=== PATIENT | male | born 1975 | race Caucasian/White ===

== ENCOUNTER 2016-07-16 14:34 | Emergency (ER) | payer OTHER ==
[~2016-07-16] VITALS: Wt 77.6 kg
[~2016-07-16 14:34] MED LIST: ATIVAN0.5 MG PO; AUGMENTIN 875 M1 TAB PO; BENTYL10 MG PO; CEFADROXIL500 M1 PO; CEPHALEXIN500 M1 PO; CEPHALEXIN500 MG PO; CLARITIN10 MG PO; CLEOCIN150 MG PO; COMPAZINE10 MG PO; DAYPRO600 M1 PO; HYDROCODONE BIT1 T11 PO; MEDROL DOSEPAK4 MG PO; MOTRIN800 MG PO; NAPROSYN500 MG PO; NKHM; NKHM PO; PCN-200200 MG PO; PENICILLIN250 MG PO; PERCOCET 325 MG1 TA2 PO; PERCOCET 325 MG1 TA6 PO; PERCOCET 325 MG1 TA7 PO; VICODIN 500 MG-1 TAB PO
[2016-07-16 15:21] LABS: BASO # 0.1 10*3/uL (0.0-0.1); BASO % 0.7 % (0.0-1.0); EOS # 0.4 10*3/uL (0.0-0.4); HEMATOCRIT 48.4 % (42.0-52.0); HEMOGLOBIN 15.9 g/dl (14.0-18.0); LYMPH # 2.1 10*3/uL (1.3-4.4); LYMPH % 24.6 % (27.0-41.0); MEAN CELL VOLUME 92.9 fl (80.0-94.0); MEAN CORPUSCULAR HGB 30.5 pg (27.0-31.0); MEAN CORPUSCULAR HGB CONC 32.9 g/dl (33.0-37.0); MONO # 0.4 10*3/uL (0.1-1.0); MONO % 5.2 % (3.0-9.0); NEUT # 5.4 10*3/uL (2.3-7.9); NEUT % 64.3 % (47.0-73.0); PLATELET COUNT AUTOMATED 254 10*3/uL (130-400); RED BLOOD COUNT 5.21 10*6/uL (4.50-5.90); WHITE BLOOD COUNT 8.4 10*3/uL (4.8-10.8)
[2016-07-16 15:35] LABS: ALKALINE PHOSPHATASE 80 U/L (45-117); BILIRUBIN, TOTAL 0.3 mg/dl (0.2-1.0); BUN 12 mg/dl (7-24); CARBON DIOXIDE 27 mmol/L (21-32); CHLORIDE 106 mmol/L (98-107); EST GLOM FILT AFRICAN AMERICAN > 60 ml/min; GLUCOSE 90 mg/dL (65-99); POTASSIUM 4.4 mmol/L (3.5-5.1); SGOT/AST 14 IU/L (3-35); SGPT/ALT 22 U/L (12-78); SODIUM 141 mmol/L (136-145); TOTAL PROTEIN 7.3 gm/dL (6.4-8.2)
[2016-07-16 15:54] LABS: BILIRUBIN NEGATIVE (NEGATIVE); BLOOD NEGATIVE (NEGATIVE); CLARITY CLEAR (CLEAR); COLOR YELLOW (YELLOW); GLUCOSE NEGATIVE (NEGATIVE); KETONE NEGATIVE (NEGATIVE); LEUKO ESTERASE NEGATIVE (NEGATIVE); NITRITE NEGATIVE (NEGATIVE); PH 5.5 (5.0-9.0); PROTEIN NEGATIVE (NEGATIVE); SPECIFIC GRAVITY <= 1.005 (1.005-1.030); UROBILINOGEN 0.2 E.U./dl (0.2-1.0)
[2016-07-16 16:28] LABS: URINE REFLEX COMMENT NO (NO); WBC 0-2 wbc/hpf (0-5)
[2016-07-16 17:00] VITALS: BP 110/68
[2016-07-16] MEDS ORDERED: BENTYL10 MG PO (17:09)
== END 2016-07-16 17:22 | disposition home or self-care (01) ==
LOC: ED 14:34
PROVIDERS: Physician Assistant
DX: G89.29 Other chronic pain (principal); R10.32 Left lower quadrant pain; F17.200 Nicotine dependence, unspecified, uncomplicated; Z90.49 Acquired absence of other specified parts of digestive tract; Z87.442 Personal history of urinary calculi

== ENCOUNTER → 2017-05-06 | Day surgery (SDC) | payer OTHER ==
[~2017-05-06] VITALS: Ht 170.1 cm; Wt 72.6 kg
[~2017-05-06] MED LIST changes: +ADVIL200 MG PO; +OMEPRAZOLE40 MG PO
--- NOTE | ~2017-05-06 | O ---
[place], [place] OPERATIVE NOTE NAME: MANJEET TAN UNIT #: [id number] ROOM: DOCTOR: RODRÍGUEZ GILMORE MD BIRTHDATE: [birth year] DOS: 05/06/2017 GASTROENDOSCOPIC REPORT INDICATIONS: A 41-year-old patient has presented with chief complaint of epigastric distress, dyspepsia, avid intake of Advil, change in bowel habit. Two bottles of Pepto-Bismol daily and ibuprofen greater than 6 tablets per day. ALLERGIES: No medication. FAMILY HISTORY: Colonic carcinoma in uncle. PAST SURGICAL HISTORY: Appendectomy, tobacco. PROCEDURE: Today's procedure part of investigation is panendoscopy and colonoscopy. REPORT: After putting the patient in left lateral position and application of lubricant to the scope, the scope was introduced. Thereafter, under direct visualization, advanced through the length of esophagus without difficulty. Esophagus, cervical, thoracic distal within normal limits. Gastric pouch was entered. Diffuse gastritis was noticed. This is secondary to Advil intake and consumption of Pepto-Bismol large volume. Therefore, this is going to be addressed with omeprazole 40 mg daily. Duodenum was entered. Evidence of duodenitis as well was noticed. Gastritis seen. Antrum was biopsied. GI reflexion of the scope reveals cardia to be benign. Air was suctioned out. The patient was extubated, tolerated procedure well. IMPRESSION: Gastritis, duodenitis, most likely secondary to avid intake of Advil and Pepto-Bismol. PLAN AND DISCUSSION: Omeprazole 40 mg daily as advised to abstain from intake of Pepto-Bismol and Advil and Tylenol substitution would do and clinical reassessment. The patient has presented with diarrhea. The patient has been taking two bottles of Pepto-Bismol. This could has been the culprit. He is taking that because of the dyspepsia. Self treatment [place], [place] OPERATIVE NOTE NAME: MANJEET TAN UNIT #: [id number] ROOM: DOCTOR: RODRÍGUEZ GILMORE MD BIRTHDATE: [birth year] RODRÍGUEZ GILMORE MD CM:OPRECORD:OPERATIVE NOTE [id number] RODRÍGUEZ GILMORE MD 05/06/17 1233 interface
--- NOTE | ~2017-05-06 | O ---
[place], [place] OPERATIVE NOTE NAME: MANJEET TAN UNIT #: [id number] ROOM: DOCTOR: MANDO GIRALDO,RODRÍGUEZ BIRTHDATE: [birth year] DOS: 05/06/2017 The patient has presented with diarrhea. The patient has been taking two bottles of Pepto-Bismol. This could has been the culprit. He is taking that because of the dyspepsia. Self-treatment. PROCEDURE: Today's procedure part of investigation is colonoscopy plus piecemeal polypectomy. PREMEDICATION: Versed and Diprivan. SCOPE: Olympus folding colonoscope 10L video. REPORT: After putting the patient in left lateral position and application of lubricant to the scope, the scope was introduced. Thereafter, under direct visualization, advanced through the length of colon without difficulty. Some retained stool throughout encountered. Base of cecum; however explored. Appendiceal orifice identified, ileocecal valve was defined. Air was suctioned out. The patient was extubated after removal of a sessile polypoid lesion from sigmoid colon with piecemeal polypectomy. IMPRESSION: Sessile colonic polyp, sigmoid colon, otherwise normal colonoscopic examination. PLAN AND DISCUSSION: The patient advised to abstain intake of Pepto-Bismol 2 bottles per day and to abstain from ibuprofen intake 6 tablets daily, substituting with Tylenol as well and was advised to abstain from carbonated sodas and nicotine products. Follow up routinely with you in office, p.r.n. visit with us in [facility]. Thank you very much indeed. RODRÍGUEZ GILMORE MD CM:OPRECORD:OPERATIVE NOTE [id number] RODRÍGUEZ GILMORE MD 05/06/17 1236 interface
[2017-05-06 09:49] VITALS: BP 112/67
[2017-05-06 11:48] VITALS: BP 102/60
[2017-05-06 11:56] VITALS: BP 108/63
[2017-05-06 12:13] VITALS: BP 116/78
[2017-05-06 12:20] VITALS: BP 105/67
== END ==
LOC: SDC 05-04 09:30
DX: D12.5 Benign neoplasm of sigmoid colon (principal); K29.90 Gastroduodenitis, unspecified, without bleeding; F41.9 Anxiety disorder, unspecified; M54.5 Low back pain; G89.29 Other chronic pain; Z90.49 Acquired absence of other specified parts of digestive tract; Z80.9 Family history of malignant neoplasm, unspecified; Z82.49 Family history of ischemic heart disease and other diseases of the circulatory system; F17.210 Nicotine dependence, cigarettes, uncomplicated

== ENCOUNTER 2017-08-05 20:51 | Emergency (ER) | payer OTHER ==
[~2017-08-05] VITALS: Ht 172.7 cm; Wt 76.2 kg
[2017-08-05 20:52] VITALS: BP 137/88
[2017-08-05 22:19] LABS: BASO # 0.1 10*3/uL (0.0-0.1); BASO % 0.6 % (0.0-1.0); EOS # 0.6 10*3/uL (0.0-0.4); EOS % 6.8 % (1.0-4.0); HEMATOCRIT 46.2 % (42.0-52.0); HEMOGLOBIN 14.8 g/dl (14.0-18.0); LYMPH # 2.9 10*3/uL (1.3-4.4); LYMPH % 31.9 % (27.0-41.0); MEAN CELL VOLUME 95.7 fl (80.0-94.0); MEAN CORPUSCULAR HGB 30.6 pg (27.0-31.0); MEAN PLATELET VOLUME 8.8 fl (9.6-12.3); MONO # 0.7 10*3/uL (0.1-1.0); MONO % 7.3 % (3.0-9.0); NEUT # 4.8 10*3/uL (2.3-7.9); NEUT % 53.2 % (47.0-73.0); PLATELET COUNT AUTOMATED 265 10*3/uL (130-400); RED BLOOD COUNT 4.83 10*6/uL (4.50-5.90); RED CELL DISTRI WIDTH 12.2 % (0-14.5); WHITE BLOOD COUNT 8.9 10*3/uL (4.8-10.8)
[2017-08-05 22:38] LABS: ALBUMIN 3.9 gm/dl (3.1-4.5); ALKALINE PHOSPHATASE 70 U/L (45-117); BUN 11 mg/dl (7-24); CHLORIDE 102 mmol/L (98-107); CREATININE 0.97 mg/dL (0.70-1.30); POTASSIUM 4.5 mmol/L (3.5-5.1); SGOT/AST 15 IU/L (3-35); SGPT/ALT 24 U/L (12-78); SODIUM 139 mmol/L (136-145); TOTAL PROTEIN 7.1 gm/dL (6.4-8.2); URIC ACID 5.3 mg/dL (3.5-7.2)
[2017-08-05 23:35] LABS: BODY FLUID WBC 307 /uL
[2017-08-05] MEDS ORDERED: PERCOCET 5-3251 EACH PO (23:58)
[2017-08-06] MEDS ORDERED: Motrin,Rufen800 MG PO (00:11)
[2017-08-06 00:53] LABS: BF LYMPHOCYTES 20 %; BF MONOCYTES 75 %; BF NEUTROPHILS 5 %
== END 2017-08-06 00:59 | disposition home or self-care (01) ==
LOC: ED 20:51
PROVIDERS: Physician Assistant
DX: M25.462 Effusion, left knee (principal); F17.200 Nicotine dependence, unspecified, uncomplicated; Z90.49 Acquired absence of other specified parts of digestive tract; Z79.899 Other long term (current) drug therapy

== ENCOUNTER → 2017-09-23 | Outpatient (CLI) | payer OTHER ==
[~2017-09-23] MED LIST changes: +Motrin,Rufen800 MG PO; +PERCOCET 5-3251 EACH PO
== END | disposition home or self-care (01) ==
LOC: MRI 09-03 09:00
DX: Z01.818 Encounter for other preprocedural examination (principal); S83.242A Other tear of medial meniscus, current injury, left knee, initial encounter; X58.XXXA Exposure to other specified factors, initial encounter; Y93.89 Activity, other specified; Y92.89 Other specified places as the place of occurrence of the external cause; Y99.8 Other external cause status

== ENCOUNTER 2017-10-03 16:52 | Emergency (ER) | payer OTHER ==
[~2017-10-03] VITALS: Ht 172.7 cm; Wt 74.8 kg
[2017-10-03 16:53] VITALS: BP 131/67
== END 2017-10-03 18:55 | disposition home or self-care (01) ==
LOC: ED 16:52
DX: M25.562 Pain in left knee (principal); Z79.899 Other long term (current) drug therapy; Z90.49 Acquired absence of other specified parts of digestive tract

== ENCOUNTER → 2017-10-08 | Outpatient (CLI) | payer OTHER ==
[~2017-10-08] MED LIST changes: +NORCO 5-325 TA1 EACH PO; +ZOFRAN4 MG PO
== END | disposition home or self-care (01) ==
LOC: ORTHO 01:07
DX: M25.462 Effusion, left knee (principal); S83.207A Unspecified tear of unspecified meniscus, current injury, left knee, initial encounter; X58.XXXA Exposure to other specified factors, initial encounter; Y93.89 Activity, other specified; Y92.89 Other specified places as the place of occurrence of the external cause; Y99.8 Other external cause status

== ENCOUNTER 2018-06-17 21:40 | Emergency (ER) | payer OTHER ==
[~2018-06-17] VITALS: Ht 170.1 cm; Wt 72.6 kg
[~2018-06-17 21:40] MED LIST changes: +VIBRAMYCIN100 MG PO
[2018-06-17 21:42] VITALS: BP 129/74
[2018-06-17 22:18] LABS: BASO # 0.1 10*3/uL (0.0-0.1); BASO % 0.8 % (0.0-1.0); EOS # 0.6 10*3/uL (0.0-0.4); EOS % 7.6 % (1.0-4.0); HEMATOCRIT 46.4 % (42.0-52.0); LYMPH # 2.4 10*3/uL (1.3-4.4); LYMPH % 29.2 % (27.0-41.0); MEAN CELL VOLUME 93.9 fl (80.0-94.0); MEAN CORPUSCULAR HGB 30.4 pg (27.0-31.0); MEAN CORPUSCULAR HGB CONC 32.3 g/dl (33.0-37.0); MEAN PLATELET VOLUME 8.8 fl (9.6-12.3); MONO # 0.6 10*3/uL (0.1-1.0); MONO % 6.8 % (3.0-9.0); NEUT # 4.6 10*3/uL (2.3-7.9); NEUT % 55.5 % (47.0-73.0); PLATELET COUNT AUTOMATED 271 10*3/uL (130-400); RED BLOOD COUNT 4.94 10*6/uL (4.50-5.90); RED CELL DISTRI WIDTH 11.9 % (0-14.5); WHITE BLOOD COUNT 8.3 10*3/uL (4.8-10.8)
[2018-06-17 22:41] LABS: ALBUMIN 3.7 gm/dl (3.1-4.5); ALKALINE PHOSPHATASE 106 U/L (45-117); BUN 16 mg/dl (7-24); CHLORIDE 107 mmol/L (98-107); CREATININE 0.99 mg/dL (0.70-1.30); POTASSIUM 3.7 mmol/L (3.5-5.1); SGOT/AST 7 IU/L (3-35); SGPT/ALT 17 U/L (12-78); SODIUM 141 mmol/L (136-145); TOTAL PROTEIN 7.2 gm/dL (6.4-8.2)
== END 2018-06-18 00:27 | disposition home or self-care (01) ==
LOC: ED 21:40
PROVIDERS: Emergency Medicine
DX: L73.8 Other specified follicular disorders (principal); J98.8 Other specified respiratory disorders; B33.8 Other specified viral diseases; F17.200 Nicotine dependence, unspecified, uncomplicated; G89.29 Other chronic pain; R10.9 Unspecified abdominal pain; Z79.899 Other long term (current) drug therapy; Z90.49 Acquired absence of other specified parts of digestive tract

== ENCOUNTER 2018-12-06 18:58 | Emergency (ER) | payer OTHER ==
[~2018-12-06] VITALS: Ht 172.7 cm; Wt 70.3 kg
[2018-12-06 18:59] VITALS: BP 126/79
[2018-12-06] MEDS ORDERED: CEPHALEXIN500 M1 PO (20:19)
[2018-12-06] MEDS ORDERED: NAPROSYN500 MG PO (20:19)
== END 2018-12-06 20:23 | disposition home or self-care (01) ==
LOC: ED 18:58
DX: S60.012A Contusion of left thumb without damage to nail, initial encounter (principal); L08.9 Local infection of the skin and subcutaneous tissue, unspecified; Z79.2 Long term (current) use of antibiotics; Z90.49 Acquired absence of other specified parts of digestive tract; W22.8XXA Striking against or struck by other objects, initial encounter; Y93.89 Activity, other specified; Y92.89 Other specified places as the place of occurrence of the external cause; Y99.8 Other external cause status

== ENCOUNTER 2018-12-08 05:48 | Emergency (ER) | payer OTHER ==
[~2018-12-08] VITALS: Ht 177.8 cm; Wt 68.0 kg
[2018-12-08 06:02] VITALS: BP 125/95
[2018-12-08 06:31] LABS: BASO # 0.1 10*3/uL (0.0-0.1); BASO % 0.5 % (0.0-1.0); EOS # 0.3 10*3/uL (0.0-0.4); EOS % 2.4 % (1.0-4.0); HEMATOCRIT 43.2 % (42.0-52.0); LYMPH # 1.8 10*3/uL (1.3-4.4); LYMPH % 12.7 % (27.0-41.0); MEAN CELL VOLUME 94.5 fl (80.0-94.0); MEAN CORPUSCULAR HGB 30.6 pg (27.0-31.0); MEAN CORPUSCULAR HGB CONC 32.4 g/dl (33.0-37.0); MEAN PLATELET VOLUME 8.6 fl (9.6-12.3); MONO # 0.9 10*3/uL (0.1-1.0); MONO % 6.3 % (3.0-9.0); NEUT # 10.9 10*3/uL (2.3-7.9); NEUT % 77.7 % (47.0-73.0); PLATELET COUNT AUTOMATED 293 10*3/uL (130-400); RED BLOOD COUNT 4.57 10*6/uL (4.50-5.90); RED CELL DISTRI WIDTH 12.2 % (0-14.5); WHITE BLOOD COUNT 14.1 10*3/uL (4.8-10.8)
[2018-12-08 06:46] LABS: ALBUMIN 3.6 gm/dl (3.1-4.5); ALKALINE PHOSPHATASE 89 U/L (45-117); BUN 16 mg/dl (7-24); CHLORIDE 109 mmol/L (98-107); CREATININE 0.83 mg/dL (0.70-1.30); POTASSIUM 4.3 mmol/L (3.5-5.1); SGOT/AST 9 IU/L (3-35); SGPT/ALT 11 U/L (12-78); SODIUM 142 mmol/L (136-145); TOTAL PROTEIN 6.2 gm/dL (6.4-8.2)
[2018-12-08] MEDS ORDERED: CLINDAMYCIN HC300 MG PO (06:52)
== END 2018-12-08 07:05 | disposition home or self-care (01) ==
LOC: ED 05:48
PROVIDERS: Student in an Organized Health Care Education/Training Program
DX: L02.411 Cutaneous abscess of right axilla (principal); M79.645 Pain in left finger(s); K13.0 Diseases of lips; R45.1 Restlessness and agitation

== ENCOUNTER 2022-08-17 19:49 | Emergency (ER) | payer OTHER ==
[~2022-08-17] VITALS: Wt 77.1 kg
[~2022-08-17 19:49] MED LIST changes: +CLINDAMYCIN HC300 MG PO
[2022-08-17 20:13] LABS: URINE AMPHETAMINES Positive (1000ng/ml); URINE BARBITURATES Negative (200ng/ml); URINE BENZODIAZEPINES Negative (200ng/ml); URINE CANNABINOIDS (THC) Positive (50ng/ml); URINE COCAINE Negative (300ng/ml); URINE METHADONE Negative (300ng/ml); URINE OPIATES Negative (300ng/ml); URINE PHENCYCLIDINE Negative (25ng/ml)
[2022-08-17 20:29] LABS: BASO # 0.1 10*3/uL (0.0-0.1); BASO % 0.5 % (0.0-1.0); EOS # 0.1 10*3/uL (0.0-0.4); EOS % 0.5 % (1.0-4.0); HEMATOCRIT 48.9 % (42.0-52.0); LYMPH # 1.4 10*3/uL (1.3-4.4); MEAN CELL VOLUME 93.7 fl (80.0-94.0); MEAN CORPUSCULAR HGB 30.1 pg (27.0-31.0); MEAN CORPUSCULAR HGB CONC 32.1 g/dl (33.0-37.0); MEAN PLATELET VOLUME 8.8 fl (9.6-12.3); MONO # 0.7 10*3/uL (0.1-1.0); NEUT # 8.6 10*3/uL (2.3-7.9); NEUT % 79.4 % (47.0-73.0); PLATELET COUNT AUTOMATED 491 10*3/uL (130-400); RED BLOOD COUNT 5.22 10*6/uL (4.50-5.90); RED CELL DISTRI WIDTH 12.7 % (0-14.5); WHITE BLOOD COUNT 10.8 10*3/uL (4.8-10.8)
[2022-08-17 20:36] LABS: BILIRUBIN Negative (Negative); BLOOD Negative (Negative); CLARITY Clear (Clear); COLOR Dark Yellow (Yellow); GLUCOSE Negative (Negative); KETONE Trace (Negative); LEUKO ESTERASE Negative (Negative); NITRITE Negative (Negative); PH 5.5 (4.5-8.0); SPECIFIC GRAVITY >= 1.030 (1.001-1.030)
[2022-08-17 20:39] LABS: BACTERIA 1+; RBC 0-2 rbc/hpf (0-2)
[2022-08-17 20:43] LABS: ALKALINE PHOSPHATASE 78 U/L (46-116); BUN 13 mg/dl (9-23); CHLORIDE 106 mmol/L (98-107); POTASSIUM 4.5 mmol/L (3.4-5.1); SGPT/ALT 28 U/L (10-49); TOTAL PROTEIN 7.4 gm/dL (6.0-8.0)
[2022-08-17 20:44] LABS: ETHYL ALCOHOL < 3.0 mg/dl (<3)
[2022-08-17 22:52] VITALS: BP 101/36; BP 103/46; BP 106/42; BP 110/56; BP 80/26; BP 87/33; BP 98/48
[2022-08-18 14:47] VITALS: BP 138/85
== END 2022-08-18 18:55 | disposition short-term general hospital (02) ==
LOC: ED 19:49
PROVIDERS: Internal Medicine
DX: T43.654A Poisoning by methamphetamines, undetermined, initial encounter (principal); Z20.822 Contact with and (suspected) exposure to COVID-19; R41.82 Altered mental status, unspecified; R74.8 Abnormal levels of other serum enzymes; R50.9 Fever, unspecified; E87.20 Acidosis, unspecified; N18.31 Chronic kidney disease, stage 3a; Z90.49 Acquired absence of other specified parts of digestive tract; Z90.89 Acquired absence of other organs; Y92.89 Other specified places as the place of occurrence of the external cause

== ENCOUNTER → 2022-09-18 | Outpatient (CLI) | payer OTHER | END | disposition home or self-care (01) | LOC: US 13:00 | PROVIDERS: ATTEND Nurse Practitioner Family | DX: I80.9 Phlebitis and thrombophlebitis of unspecified site (principal); M79.89 Other specified soft tissue disorders ==

== ENCOUNTER 2022-09-27 21:12 | Emergency (ER) | payer OTHER ==
[~2022-09-27] VITALS: Ht 170.1 cm; Wt 77.1 kg
[2022-09-27 21:18] VITALS: BP 150/87
== END 2022-09-27 22:28 | disposition home or self-care (01) ==
LOC: ED 21:12
DX: T82.7XXA Infection and inflammatory reaction due to other cardiac and vascular devices, implants and grafts, initial encounter (principal); Z00.01 Encounter for general adult medical examination with abnormal findings; F41.9 Anxiety disorder, unspecified; Z90.89 Acquired absence of other organs; Z90.49 Acquired absence of other specified parts of digestive tract; Z98.890 Other specified postprocedural states